=== PATIENT | female | born 1965 | race Caucasian/White ===

== ENCOUNTER → 2018-08-17 | Outpatient (CLI) | payer OTHER ==
[~2018-08-17] MED LIST: ADVAIR 250-501 EACH INH; B COMPLEX1 EAC1 PO; CENTRUM SILVER1 EAC2 PO; CLARITIN10 M2 PO; IRON325 PO; VENTOLIN HFA 1818 GM INH; VITAMIN D1000 UNI1 PO; VITAMINC500 PO; [UNRECOGNIZED DRUG - OTHER]
== END ==
LOC: RAD 08:10
DX: Z12.31 Encounter for screening mammogram for malignant neoplasm of breast (principal)

== ENCOUNTER → 2018-09-06 | Outpatient (CLI) | payer OTHER | LOC: ULTRA 12:46 | DX: N60.01 Solitary cyst of right breast (principal); Z78.0 Asymptomatic menopausal state ==

== ENCOUNTER → 2018-10-17 | Outpatient (CLI) | payer OTHER ==
[~2018-10-17] VITALS: Ht 180.3 cm; Wt 88.5 kg
[~2018-10-17] MED LIST changes: +FISH OIL 1,001000 M2 PO; +LISINOPRIL20 MG PO; +MAGOX 400400 MG PO; +POTASSIUM99 MG PO; +VITAMIN D2000 UNIT PO
--- NOTE | ~2018-10-17 | P ---
[facility] [place] [address] PROCEDURE REPORT Name: RYAN GALO Room #: REG [facility]#: [id number] Admission: 10/17/18 Attend Phys: Larry Washington Discharge: Date of : 69 Report #: [id number] THIS REPORT FOR: //name// CC: Larry Tinajero DATE OF SERVICE: 10/17/2018 PROCEDURE PERFORMED: Colonoscopy with biopsies. HISTORY OF PRESENT ILLNESS: The patient is a 53-year-old female who presents today for routine screening colonoscopy. No family history of colon cancer. The patient does report loose stools at times. She denies any abdominal pain, no blood in her stools. DESCRIPTION OF PROCEDURE: The risks and benefits of the procedure were explained to the patient, those risks including but not limited to bleeding, perforation, the risk of sedation. She understood these risks and gave informed consent. Sedation was given using propofol per Anesthesia. Next, a digital rectal exam was initially performed, which was normal. Next, using a standard Olympus colonoscope, the scope was placed in the patient's anus and advanced under direct vision to the cecum. The overall prep was excellent. The cecum and ileocecal valve were normal in appearance. Terminal ileum was intubated and normal in appearance. Ascending, transverse and descending colon were normal. A few small scattered diverticula were noted in the sigmoid colon, no evidence of inflammation, otherwise normal. The rectal mucosa was normal. Random biopsies were obtained today to rule out the possibility of microscopic colitis. On retroflexion, no abnormalities were noted. The scope was then withdrawn and the procedure terminated. The patient tolerated the procedure well. IMPRESSION: 1. Mild sigmoid diverticulosis. 2. Otherwise, normal colonoscopy. RECOMMENDATIONS: 1. Await biopsy results. 2. Repeat colonoscopy in 10 years. Thank you for allowing me to participate in her care. <ELECTRONICALLY SIGNED> By: Larry Herbert MD 10/19/18 [phone] Larry Herbert MD /nt
--- NOTE | ~2018-10-17 | PATH ---
[facility] [address] [place] [address] PATHOLOGY RPT PROCEDURE Name: RYAN GALO Room #: REG ENZO Zheng.#: [id number] Admission: 10/17/18 Date of : 69 Discharge: Report #: [id number] Path Case #: [id number] [facility] Accession Number: [id number] . 01 Material submitted: . RANDOM BX OF COLON R/O MICROSCOPIC COLITIS . 01 Clinical history: . Pre-OP DX: Screening Post-OP DX: Diverticulosis . 02 Diagnosis: Large intestine mucosa, random colon rule out microscopic colitis, endoscopic biopsy; - Mild to moderate active colitis with cryptitis and focal crypt abscess formation. - Negative for dysplasia or malignancy. - Negative for microscopic colitis. (IUV:director clinical data; 10/18/2018) MBR/10/18/2018 . 02 Comment: Sections of the colonic mucosa designated "random colon" show foci of cryptitis, focal crypt abscess formation, and a moderately cellular lamina propria composed predominantly of lymphocytes and plasma cells and occasional eosinophils. Surface ulceration is not identified. There are no granulomas or viral inclusions. The process affects all the fragments with a similar intensity. Given the description, the differential diagnosis includes acute infectious-type of colitis, drug induced or medication induced colitis, acute diverticulitis, as well as an inflammatory bowel disease. Architectural abnormalities are not identified. Please correlate with clinical as well as endoscopic findings. (IUV:director clinical data; 10/18/2018) . 02 Electronically signed: . Kira Wright MD, Pathologist NPI- [id number] . 01 Gross description: . Received in formalin labeled "Isela Ryan, random BX colon, rule out microscopic colitis," are 4 segments of manuel soft tissue measuring 1.5 x 0.9 x 0.2 cm in aggregate dimensions and ranging from 0.5 to 0.9 cm in maximum dimension. The specimen is submitted entirely in cassette A1. (TSD; 10/17/2018) TOB/TOB . [address] [address] PATHOLOGY RPT PROCEDURE Name: RYAN GALO Room #: REG CLCarlos Zuñiga#: [id number] Admission: 10/17/18 Date of : 69 Discharge: Report #: [id number] Path Case #: [id number] Pathologist provided ICD-10: K52.9 . 02 CPT . 670541 Specimen Comment: A courtesy copy of this report has been sent to Specimen Comment: [phone], . Specimen Comment: Report sent to / DR HAMMOND Specimen Comment: A duplicate report has been generated due to demographic updates. Performed at: [address], [place] [id number] MD Mau Lowry MD Phone: [phone] Performed at: [address] [id number] MD Kira Wright MD Phone: [phone]
== END | disposition home or self-care (01) ==
LOC: GI 09-26 18:16
DX: Z12.11 Encounter for screening for malignant neoplasm of colon (principal); K52.9 Noninfective gastroenteritis and colitis, unspecified; K57.30 Diverticulosis of large intestine without perforation or abscess without bleeding; J45.909 Unspecified asthma, uncomplicated; G47.30 Sleep apnea, unspecified; I10 Essential (primary) hypertension; D64.9 Anemia, unspecified; Z88.0 Allergy status to penicillin; Z88.8 Allergy status to other drugs, medicaments and biological substances; Z79.899 Other long term (current) drug therapy; Z98.890 Other specified postprocedural states; Z90.89 Acquired absence of other organs
CPT/HCPCS: 62110; 62900

== ENCOUNTER → 2018-12-07 | Outpatient (CLI) | payer OTHER | LOC: ULTRA 14:24 | DX: D25.9 Leiomyoma of uterus, unspecified (principal); N83.291 Other ovarian cyst, right side; N93.8 Other specified abnormal uterine and vaginal bleeding ==

== ENCOUNTER → 2019-01-22 | Outpatient (CLI) | payer OTHER | LOC: CAT 09:19 | DX: Z13.6 Encounter for screening for cardiovascular disorders (principal); E78.00 Pure hypercholesterolemia, unspecified; I25.10 Atherosclerotic heart disease of native coronary artery without angina pectoris ==

== ENCOUNTER → 2019-04-23 | Outpatient (CLI) | payer OTHER | LOC: ULTRA 14:50 | DX: N83.201 Unspecified ovarian cyst, right side (principal); D25.9 Leiomyoma of uterus, unspecified; N92.0 Excessive and frequent menstruation with regular cycle ==

== ENCOUNTER → 2019-05-01 | Outpatient (CLI) | payer OTHER | LOC: RAD 08:31 | DX: R92.2 Inconclusive mammogram (principal) ==

== ENCOUNTER → 2020-04-10 | Outpatient (CLI) | payer OTHER | LOC: LAB 09:38 | PROVIDERS: ATTEND Family Medicine | DX: R50.9 Fever, unspecified (principal); R06.02 Shortness of breath; Z20.828 Contact with and (suspected) exposure to other viral communicable diseases ==

== ENCOUNTER → 2020-05-12 | Outpatient (CLI) | payer OTHER ==
[2020-05-12 15:37] LABS: ABSOLUTE NEUTROPHILS 4.3 thou/uL (1.4-8.2); BASOPHILS 0.6 % (0.0-2.0); EOSINOPHILS 1.8 % (0.0-3.0); HEMATOCRIT 40.1 % (37.0-47.0); HEMOGLOBIN 13.6 gm/dL (12.0-15.0); LYMPHOCYTES 20.4 % (24.0-44.0); MCH 30.8 pg (26.0-34.0); MCHC 33.8 g/dL (28.0-37.0); MONOCYTES 7.4 % (1.0-8.0); PLATELET COUNT 254 thou/uL (150-400); POLYS 69.8 % (36.0-66.0); RDW 14.3 % (10.5-14.5); WBC 6.2 thou/uL (4.0-11.0)
[2020-05-12 15:52] LABS: ALBUMIN 3.7 g/dL (3.4-5.0); CALCIUM 10.1 mg/dL (8.5-10.1); CREATININE 0.8 mg/dL (0.6-1.0); POTASSIUM 4.4 mmol/L (3.5-5.1); TOTAL BILIRUBIN 0.3 mg/dL (0.2-1.0); TOTAL PROTEIN 6.4 g/dL (6.4-8.2)
[2020-05-13 02:06] LABS: GLYCOHEMOGLOBIN (HGB A1C) 5.4 % (4.8-5.6)
== END ==
LOC: LAB 15:10
PROVIDERS: ATTEND Family Medicine
DX: R73.9 Hyperglycemia, unspecified (principal)

== ENCOUNTER → 2020-07-24 | Outpatient (CLI) | payer OTHER | LOC: LAB 13:38 | PROVIDERS: ATTEND Family Medicine | DX: Z20.828 Contact with and (suspected) exposure to other viral communicable diseases (principal) ==

== ENCOUNTER 2020-08-05 17:44 | Emergency (ER) | payer OTHER ==
[~2020-08-05] VITALS: Ht 180.3 cm; Wt 95.3 kg
[2020-08-05 17:44] VITALS: BP 169/83
[2020-08-05 19:09] LABS: URINE BILIRUBIN NEGATIVE (Negative); URINE BLOOD NEGATIVE (Negative); URINE CLARITY CLEAR; URINE COLOR YELLOW; URINE GLUCOSE-RANDOM* NEGATIVE (Negative); URINE KETONES NEGATIVE (Negative); URINE LEUKOCYTES-REFLEX NEGATIVE (Negative); URINE NITRITE-REFLEX NEGATIVE (Negative); URINE PROTEIN (DIPSTICK) NEGATIVE (Negative); URINE SPECIFIC GRAVITY 1.015 (1.005-1.035); URINE UROBILINOGEN 0.2 E.U./dl (0.2-1.0)
--- NOTE | 2020-08-05 22:40 | NUR ---
PT CALLED FOR COVID RESULTS AND UPDATED.
== END 2020-08-05 19:40 | disposition home or self-care (01) ==
LOC: ER 17:44
PROVIDERS: Physician Assistant
DX: U07.1 COVID-19 (principal); J45.909 Unspecified asthma, uncomplicated; Z98.890 Other specified postprocedural states; Z90.89 Acquired absence of other organs; Z79.899 Other long term (current) drug therapy; Z88.1 Allergy status to other antibiotic agents; Z88.0 Allergy status to penicillin; Z88.8 Allergy status to other drugs, medicaments and biological substances; Z91.048 Other nonmedicinal substance allergy status

== ENCOUNTER → 2020-11-03 | Outpatient (CLI) | payer OTHER | LOC: LAB 09:49 | PROVIDERS: ATTEND Nurse Practitioner | DX: U07.1 COVID-19 (principal) ==

== ENCOUNTER 2021-05-14 09:06 | Emergency (ER) | payer OTHER ==
[~2021-05-14] VITALS: Ht 180.3 cm; Wt 93.0 kg
[2021-05-14 10:12] VITALS: BP 126/68
== END 2021-05-14 10:12 | disposition home or self-care (01) ==
LOC: ER 09:06
DX: Z20.822 Contact with and (suspected) exposure to COVID-19 (principal); J45.909 Unspecified asthma, uncomplicated; Z86.2 Personal history of diseases of the blood and blood-forming organs and certain disorders involving the immune mechanism; Z90.89 Acquired absence of other organs; Z98.890 Other specified postprocedural states; Z88.1 Allergy status to other antibiotic agents; Z88.0 Allergy status to penicillin; Z91.048 Other nonmedicinal substance allergy status

== ENCOUNTER 2021-11-03 11:29 | Emergency (ER) | payer OTHER ==
[~2021-11-03] VITALS: Ht 180.3 cm; Wt 95.3 kg
[2021-11-03 12:51] LABS: ABSOLUTE NEUTROPHILS 5.5 thou/uL (1.4-8.2); BASOPHILS 0.5 % (0.0-2.0); EOSINOPHILS 0.9 % (0.0-3.0); HEMATOCRIT 40.9 % (37.0-47.0); HEMOGLOBIN 13.7 gm/dL (12.0-15.0); LYMPHOCYTES 14.3 % (24.0-44.0); MCH 29.9 pg (26.0-34.0); MCHC 33.5 g/dL (28.0-37.0); MCV 89.1 fL (80.0-100.0); MONOCYTES 8.2 % (1.0-8.0); PLATELET COUNT 259 thou/uL (150-400); POLYS 76.1 % (36.0-66.0); RBC 4.59 mil/uL (4.20-5.00); RDW 13.9 % (10.5-14.5); WBC 7.2 thou/uL (4.0-11.0)
[2021-11-03 13:00] LABS: URINE BILIRUBIN NEGATIVE (Negative); URINE BLOOD NEGATIVE (Negative); URINE CLARITY CLEAR; URINE COLOR YELLOW; URINE GLUCOSE-RANDOM* NEGATIVE (Negative); URINE KETONES NEGATIVE (Negative); URINE LEUKOCYTES-REFLEX TRACE (Negative); URINE NITRITE-REFLEX NEGATIVE (Negative); URINE PROTEIN (DIPSTICK) NEGATIVE (Negative); URINE SPECIFIC GRAVITY 1.015 (1.005-1.035); URINE UROBILINOGEN 0.2 E.U./dl (0.2-1.0)
[2021-11-03 14:54] VITALS: BP 134/82
== END 2021-11-03 14:54 | disposition home or self-care (01) ==
LOC: ER 11:29
PROVIDERS: Physician Assistant
DX: J02.9 Acute pharyngitis, unspecified (principal); Z20.822 Contact with and (suspected) exposure to COVID-19; J45.909 Unspecified asthma, uncomplicated; Z88.1 Allergy status to other antibiotic agents; Z88.0 Allergy status to penicillin; Z79.899 Other long term (current) drug therapy